=== PATIENT | female | born 1970 | race Caucasian/White ===

== ENCOUNTER 2020-08-18 09:55 | Emergency (ER) | payer OTHER, SELFPAY ==
[2020-08-18 11:00] VITALS: BP 133/90; PULSE 104; RESP 20; TEMP 37; O2SAT 96; BMI 35.7
[2020-08-18 11:12] VITALS: BP 133/90; PULSE 104; RESP 20; TEMP 37; O2SAT 96
--- NOTE | 2020-08-18 11:16 | HMH.EDUTC ---
[facility] [place] Impression: Exposure to COVID-19 virus, Viral syndrome Disposition: Home, Self-Care Condition on Discharge: Good Instructions: Preventing the Spread of Coronavirus Discharge Instructions Additional Instructions: Drink plenty of fluids. Take tylenol for pain or fever. Take the medications as directed. Follow up with your regular doctor. GO TO THE ER FOR ANY WORSENING SYMPTOMS Prescriptions: Ondansetron [Zofran 4mg ODT] 4 mg PO Q8HP PRN #12 tab.rapdis PRN Reason: Nausea Transmission Status: Received by [id number] Benzonatate [Tessalon Perle 100mg Cap] 100 mg PO TIDP PRN #30 cap PRN Reason: Cough Transmission Status: Received by [facility] Referrals: Glenny Schrader [Primary Care Provider] - Forms: Work/School Release Time of Disposition: 11:20 Medical Decision Making - Medical Records Medical records reviewed: No: I reviewed the patient's medical records. - Leif Inquiry Pt receiving controlled substance: No Vital Signs: 08/18/20 11:00 08/18/20 11:12 08/18/20 11:28 Temperature 98.6 F 98.6 F 98.6 F Temperature Source Oral Oral Pulse Rate 104 H Pulse Rate [Left Radial] 104 H 104 H Respiratory Rate 20 20 20 Blood Pressure 133/90 Blood Pressure [Left Arm] 133/90 133/90 Blood Pressure Mean [Left Arm] 104 104 Blood Pressure Source [Left Arm] Automatic Cuff Automatic Cuff Blood Pressure Position [Left Arm] Supine Supine 02 Sat by Pulse Oximetry 96 96 Oxygen Delivery Method Room Air Room Air Orders (Tests/Meds): ORDERS Category Date Time Status Covid-19 Nasal PCR ([facility]) Routine Lab 08/18/20 11:10 [place] [facility] [place] - General Stated complaint: weakness, sore throat Time Seen by Provider: 08/18/20 11:16 - History of Present Illness Provider Complaint: she states that for the past 2 days she has had body aches, cough and nausea. - Related Data Home Medications Medication Instructions Recorded Confirmed bupropion HCl 300 mg 24 hr tablet, mg PO 07/25/20 07/25/20 extended release estradiol 1 mg tablet 1 mg PO tab 07/25/20 07/25/20 hydrocodone 10 mg-acetaminophen 1 tab PO tab 07/25/20 07/25/20 325 mg tablet ibuprofen 800 mg tablet 800 mg PO tab 07/25/20 07/25/20 pantoprazole 40 mg tablet,delayed mg PO 07/25/20 07/25/20 release Previous Rx's Medication Instructions Recorded meloxicam 7.5 mg tablet 7.5 mg PO DAILY 30 Days #30 tab 07/25/20 methylprednisolone 4 mg tablets in See Rx Instructions PO PER PKG DIR 07/25/20 a dose pack #21 tab Benzonatate [Tessalon Perle 100mg 100 mg PO TIDP PRN #30 cap 08/18/20 Cap] Ondansetron [Zofran 4mg ODT] 4 mg PO Q8HP PRN #12 tab.rapdis 08/18/20 Allergies Allergy/AdvReac Type Severity Reaction Status Date / Time No Known Allergies Allergy Verified 07/25/20 09:26 [facility] History - Hepatitis A Screen Attestation statement:: This patient has been screened for Hepatitis A risk factors. I have reviewed the patient's past medical history: Yes Other Surgeries: Yes: Cholecystectomy, Hysterectomy-Total, Tubal Ligation, Other Comment: back surgery 2019, cyst removal from ovary and pelvic bone - Social History Smoking Status: Never smoker Alcohol Intake: never Occupational Status: employed Family Hx:: Diabetes ROS Obtained: Yes All systems reviewed & no additional complaints - Constitutional Constitutional: Reports system reviewed and no additional complaints, except as docu - Eyes Eyes: Reports system reviewed and no additional complaints, except as docu - ENT Ears, Nose, Mouth, and Throat: Reports system reviewed and no additional complaints, except as docu - Cardiovascular Cardiovascular: Reports system reviewed and no additional complaints, except as docu - Respiratory Respiratory: Yes system reviewed and no additional complaints, except as docu - Gastrointestinal Gastrointestingal: Reports: system reviewed and no addition
[2020-08-18 11:28] VITALS: BP 133/90; PULSE 104; RESP 20; TEMP 37; O2SAT 96
--- NOTE | 2020-08-18 15:49 | PC.NURSE ---
patient notified of positive covid results
== END 2020-08-18 11:32 | disposition home or self-care (01) ==
PROVIDERS: Emergency Provider Nurse Practitioner Family; PCP Family Medicine
DX: U07.1 COVID-19 (principal)
CPT/HCPCS: 99202; G0463; U0003